=== PATIENT | female | born 1940 | race Caucasian/White ===

== ENCOUNTER 2017-02-10 12:12 | Emergency (ER) | payer MEDICARE, OTHER ==
[~2017-02-10] VITALS: Ht 160 cm; Wt 77.1 kg
[~2017-02-10 12:12] MED LIST: ATORVASTATIN CA10 M1 PO; CITALOPRAM HYDR20 MG PO; LEVOTHYROXINE0.05 M2 PO; LOPRESSOR 25MG.25 M1 OR; LOSARTAN POTAS100 MG PO; MONTELUKAST SOD10 MG PO; PROVENTIL0.09 MG/Ac IH; SPIRIVA HA1 PUFF/INH IH
--- OUTSIDE RECORDS SUMMARY | 2017-02-10 12:28 | External Medical Summary Rpt | CCD ---
Author Author CATINA Address Unknown Phone [email or web address] Purpose Continuity of Care Document - through 2016
--- OUTSIDE RECORDS SUMMARY | 2017-02-10 12:28 | External Medical Summary Rpt | CCD ---
Author Author CATINA Address Unknown Phone [email or web address] Purpose Continuity of Care Document - through 2016
--- NOTE | 2017-02-10 12:29 | Emergency Room Report ---
History of Present Illness Time Seen by MD Armijo Presenting Problem in Triage Pt arrived:Walked Presenting Problem:PT PRESENTS WITH LAC TO RT LOWER LEG AFTER FALLING INTO A TABLE LAST NIGHT Onset of symptoms date/time:/ or onset unknown for:MEDICAL HX UNKNOWN Treatment Prior to Arrival: [facility] Provided by: Sepsis Risk Assessment: Temp: 98 B/P: 169/87 MAP: 114 Pulse: 62 Resp: 19 Recent fever? N Clinical Suspician of Infection? N Mental Status: 1 - Regular (Normal Baseline) Sepsis Risk:Low Sepsis Risk Have you (or family members/close friends) recently traveled outside the [place]? N If Yes, where/when: Have you had exposure to infectious disease within the past month? N TB? Other? Specify: Comment The patient bumped her RIGHT leg causing a laceration/skin tear last night at about 10 PM. She thinks her last tetanus shot was more than 5 years ago. ALLERGIES Uncoded Allergies: ARTHRITIS DRUGS (Mild, 02/12/16) Home Medications Reported Medications Atorvastatin Calcium 10 MG PO DAILY #90 Citalopram Hydrobromide (Citalopram HBr) 20 MG PO DAILY #30 Metoprolol Tartrate (Lopressor 25MG Tab (1/2 Of 50 MG)) 25 MG OR DAILY #90 Levothyroxine Sodium 0.05 MG PO DAILY #90 Losartan Potassium (Losartan 100MG) 100 MG PO DAILY #90 Albuterol Sulfate (Proventil Hfa) 0.09 MG IH PRN PRN COPD #20 Montelukast Sodium 10 MG PO DAILY #90 Tiotropium [place] (Spiriva) 1 PUFF IH DAILY #90 History Medical History General CAD? No Angina: No ID: No Hypertension? Yes Hyperlipidemia? No CHF? No DVT? No PE? No COPD? No Asthma? No Anemia? No GERD? No Gastric ulcers? No GI Bleed? No Hernia? No Thyroid Problems? No Hypothyroidism? No CVA? Yes Seizures? No Diabetes? No Renal Insuffiency? No End Stage Renal Disease? No UTI? No Stones? No BPH? No GB Disease: No Nephritic Syndrome? No Asplenia? No Hepatitis? No Sickle Cell Disease? No Arthritis? No Migraines? No Cataracts? No Glaucoma? No MRSA? No HIV? No TB? No Anxiety? No Depression? No Cancer? No More? No Immunization Hx DT/Tetanus 1-4 Years Ago Surgical Hx Previous Surgery?Y L KNEE Social History Smoking Hx Smoker: Former Smoker Tobacco: Yes Type Cigarettes Packs/day < 1 Pack Alcohol Alcohol: No Review of Systems All Other Systems Reviewed and Negative Constitutional denies fever Skin see HPI Physical Exam Vital Signs Vital Signs Date Time Temp Pulse Resp B/P Pulse O2 O2 Flow FiO2 Ox Delivery Rate 02/10 1251 98.0 62 19 169/87 95 02/10 1218 98.0 62 19 169/87 95 General Appearance no apparent distress Respiratory Status No: respiratory distress. Cardiovascular normal peripheral pulses Extremities flap type laceration/senile skin tear RIGHT pretibial area. Open portion is approximately 5 cm in length and gaping less than one CM. No active bleeding. Ecchymosis of the skin flap., there is erythema extending around the wound approximately 3-4 cm radius. Warm to touch. No purulent drainage or odor. Findings consistent with a cellulitis around the wound. Neurologic alert, no motor/sensory deficits Medical Decision Making LABS/Meds/Orders Pt receiving controlled substance in ED? No Results/Orders Current Medication Orders Sig/Jeffy Start time Last Medication Dose Route Stop Time Status Admin Cephalexin 500 MG ONCE ONE 02/10 1245 DC 02/10 Monohydrate PO 02/10 1246 1250 Multi-Ingredient 1 UDP ONCE ONE 02/10 1245 DC 02/10 Ointment TP 02/10 1246 1250 Tetanus/Diphtheria 0.5 ML ONCE ONE 02/10 1245 DC Toxoids Adsorbed IM 02/10 1246 Multi-Ingredient 0 .STK-MED ONE 02/10 1238 DC Ointment TP Orders Procedure Date/time Status GEN NSG/PT REQ (NOT FOR MEDS!) 02/10 1234 Active Progress - The wound is too old to suture and already showing signs of wound infection. It will be cleansed and bandaged. She'll be started on antibiotics and tetanus immunization given. Advised to follow up with her physician in 3-5 days for recheck. Departure Departure Disposition DC Home or Self Care(routine) Clinical Impression Primary Impression: Leg laceration Qualifiers: Encounter type: initial encounter Laterality: right Qualified Code: S81.811A - Laceration without foreign body, right lower leg, initial encounter Condition STABLE Referrals CHAD MATHIS (Family) Patient Instructions DI for Open Laceration Additional Instructions Additional instructions for WOUND CARE: Clean the wound daily and a bandage. See your physician in 3-5 days for a wound check. Return to the emergency room if increasing pain, swelling, redness, red streaks, pus drainage, or fever. Prescriptions Current Visit Scripts Cephalexin (Keflex 500MG) 500 MG PO QID #40 CAP ED Critical Care Critical Care No at [id number]
--- OUTSIDE RECORDS SUMMARY | 2017-02-10 12:29 | External Medical Summary Rpt | CCD ---
Author Author , [employer] Organization [employer] Address Unknown Phone [email or web address] Immunization Name Date Rout CVX Reac Dose Comm Prov Is Faci e tion ent ider Refu lity Give sed n Td 04-0 9 999 Hist H109 No H109 (luz marina 2-20 oric lt), 07 al Info adso rmat rbed ion - Sour ce Unsp ecif ied Td 09-2 113 999 Hist H109 No H109 (luz marina 6-20 oric lt), 06 al Info P-Fr rmat ee ion - Sour ce Unsp ecif ied Td 08-2 9 999 Hist H109 No H109 (luz marina 9-20 oric lt), 06 al Info adso rmat rbed ion - Sour ce Unsp ecif ied PPV2 12-0 33 999 Hist H109 No H109 3 5-20 oric 05 al Info rmat ion - Sour ce Unsp ecif ied
--- OUTSIDE RECORDS SUMMARY | 2017-02-10 12:29 | External Medical Summary Rpt | CCD ---
Author Author , [facility] Organization [employer] Address Unknown Phone [email or web address] Immunization Name Date Rout CVX Reac Dose [...]
--- OUTSIDE RECORDS SUMMARY | 2017-02-10 12:29 | External Medical Summary Rpt ---
Author Author [employer] Eason, [employer] Organization [employer] Address Unknown Phone Unavailable
--- OUTSIDE RECORDS SUMMARY | 2017-02-10 12:29 | External Medical Summary Rpt | CCD ---
Author Author [employer] Organization [employer] Address Unknown Phone Unavailable Purpose Continuity of Care Document - through 2016
[2017-02-10] MEDS ORDERED: KEFLEX500 M1 PO (12:37)
[2017-02-10 12:51] VITALS: BP 169/87
== END 2017-02-10 12:52 | disposition home or self-care (01) ==
LOC: ER 12:12
DX: S81.811A Laceration without foreign body, right lower leg, initial encounter (principal); W17.89XA Other fall from one level to another, initial encounter; I10 Essential (primary) hypertension; Z23 Encounter for immunization